=== PATIENT | female | born 1975 | race Two or more races ===

== ENCOUNTER 2016-07-28 04:28 | Emergency (ER) | payer OTHER ==
--- NOTE | ~2016-07-28 | CT2 ---
[facility] A Service of [facility] & [facility] RADIOLOGY TEXT RESULTS PATIENT: CARLOS NASH CERA LOCATION: [facility] : [birth year] UNIT #: [id number] AGE: [address]: Juan Herrera MD SEX: F ORDER DR: [id number] [facility] [address] [place], [place] [address] [id number] E MR#: [id number] #: [id number] NAME: CARLOS NASH CERA : 1975 SEX: F STUDY DATE/TIME: 07/28/2016 6:21 UNIT: [facility] ROOM: STUDY DESCRIPTION: CT Abd and Pelv W Cont Attending Physician: Juan Herrera M.D. Ordering Physician: Temi Salinas Pa-C Primary Care Physician: Primary Care Physician No MEDICAL IMAGING REPORT This report is preliminary unless electronic signature is present EXAM CT abdomen and pelvis with contrast. HISTORY Low abdomen pain and vaginal discharge for three days. Patient was given 100 mL of Isovue 370 and axial 5 mm images were obtained through the abdomen and pelvis. This CT exam was performed with one or more of the following radiation dose reduction techniques: automatic exposure control, adjustment of mA and/or kV according to patient size, and iterative reconstruction. FINDINGS The lung bases are clear. The liver, gallbladder, spleen, pancreas, adrenal glands and kidneys are normal. The aorta is normal in size. There is no adenopathy. The bowel including the appendix is normal. The uterus is enlarged with fluid distending the endometrial cavity. This fluid is about 6.9 x 5.0 x 10.1 cm. There is a small amount of soft tissue in the superior portion of this fluid but it does not have shape suggesting . The fluid is slightly denser than the urine in the bladder. No fibroids are identified. There are no adnexal masses. The bladder is normal. The bones are unremarkable. IMPRESSION The endometrial cavity is distended with fluid. This distended cavity is about 10.1 x 5.0 x 6.9 cm. It is mostly uniform and low in density but there is some soft tissue density along the superior margin of the endometrial cavity. The myometrial thickness is normal and enhancing endometrium is visible surrounding the fluid collection. This finding suggests some type of cervical canal obstruction. seems unlikely given the appearance of the fluid without a visual fetus. Clinical [facility] A Service of [facility] RADIOLOGY TEXT RESULTS PATIENT: CARLOS NASH CERA LOCATION: [facility] : [birth year] UNIT #: [id number] AGE: [address]: Juan Herrera MD SEX: F ORDER DR: correlation is recommended. Dictated by... Primo Aragon M.D. THIS IS AN ELECTRONICALLY VERIFIED REPORT Primo Aragon M.D. at 07/28/2016 11:44 AM Justyn TD: 07/28/2016 07:46 JOB #: [id number] MEDICAL IMAGING REPORT Page 1 of 1 COPY
[2016-07-28 04:50] LABS: BASOPHIL% 0.3 % (0-2.5); DIFF IND NO; EOSINOPHIL% 0.3 % (0.0-7.0); HEMATOCRIT 39.2 % (35.0-45.0); HEMOGLOBIN 12.9 gm/dL (12.0-16.0); LYMPHOCYTE# 1.8 X10e3 (1.0-3.5); MEAN CELL VOLUME 83.8 FL (83-96); MEAN CORPUSCULAR HEMOGLOBIN 27.7 PG (28-34); MEAN PLATELET VOLUME 6.7 FL (6.5-11.5); MONOCYTE% 7.5 % (3.0-12.0); NEUTROPHIL# 10.2 X10e3 (1.5-7.1); NEUTROPHIL% 77.9 % (40-75); PLATELET COUNT 510 X10e3 (140-420); RED BLOOD COUNT 4.67 X10e (3.90-5.30); RED CELL DISTRIBUTION WIDTH 14.5 % (11.0-15.5); WHITE BLOOD COUNT 13.1 X10e3 (4.0-10.5)
[2016-07-28 04:51] LABS: URINE SOURCE CLEAN CATCH
[2016-07-28 04:54] LABS: URINE APPEARANCE CLEAR; URINE BLOOD NEG (NEG); URINE COLOR ORANGE; URINE GLUCOSE NEG (NEG); URINE KETONE NEG (NEG); URINE LEUKOCYTE ESTERASE 1+ (NEG); URINE NITRATE POS (NEG); URINE PROTEIN NEG (NEG); URINE SPECIFIC GRAVITY 1.036 (1.003-1.035); URINE UROBILINOGEN 0.2 MG/DL (NEG)
[2016-07-28 04:56] LABS: URINE BACTERIA AUWI NEG (NEGATIVE); URINE SQUAMOUS EPITHELIAL CELL OCC /[HPF]; UWBCS1 AUWI 0-2 (0-5)
[2016-07-28 05:03] LABS: CULTURE INDICATED? NO
[2016-07-28 05:04] LABS: URINE BILIRUBIN NEG (NEG); URINE MUCUS PRESENT
[2016-07-28 05:54] LABS: ALBUMIN SERUM 4.1 g/dL (3.5-5.0); ALKALINE PHOSPHATASE 79 U/L (32-92); ALT (SGPT) 11 U/L (10-40); AMYLASE 21 U/L (0-46); AST (SGOT) 12 U/L (10-42); BILIRUBIN,TOTAL 0.4 mg/dL (0.2-2.0); BLOOD UREA NITROGEN 13 mg/dL (9-23); BUN/CREATININE RATIO 21.66; CALCIUM SERUM 9.3 mg/dL (8.4-10.2); CARBON DIOXIDE 25 mmol/L (22-31); CHLORIDE 102 mmol/L (100-111); CREATININE SERUM 0.6 mg/dL (0.6-1.4); GLOM FILT RATE Estimated 114.8 mL/min (>60); GLUCOSE FASTING 101 mg/dL (70-110); LIPASE 15 U/L (22-51); POTASSIUM 3.7 mmol/L (3.5-5.1); PROTEIN TOTAL SERUM 8.7 g/dL (6.0-8.3); SODIUM 138 mmol/L (135-145)
[2016-07-28 05:55] LABS: BILIRUBIN, DIRECT <0.1 mg/dL (0.0-0.2); BILIRUBIN,INDIRECT 0.3 mg/dL (0.0-0.9)
[2016-07-30 09:58] LABS: CHLAMYDIA TRACH Not Detected (Not Detected); N GONOR Not Detected (Not Detected)
== END 2016-07-28 09:00 | disposition home or self-care (01) ==
LOC: CED 04:28
PROVIDERS: Emergency Medicine; Physician Assistant Medical
DX: R10.9 Unspecified abdominal pain (principal); G89.18 Other acute postprocedural pain; N89.8 Other specified noninflammatory disorders of vagina
CPT/HCPCS: 36415; 51701; 74177; 80048; 80076; 81003; 82150; 83690; 85025; 87491; 87591; 87808; 87905; 96360; 99284; Q9967